=== PATIENT | female | born 1995 | race American Indian/Alaskan Native ===

== ENCOUNTER 2016-06-10 18:49 | Emergency (ER) | payer MEDICAID ==
[2016-06-10 19:04] VITALS: BP 121/59
[2016-06-10 20:33] LABS: Hematocrit 35.9 % (30.3-42.9); Hemoglobin 12.7 gm/dl (10.1-14.3); Mean Corpuscular HGB Conc 35 % (30-34); Mean Corpuscular Hemoglobin 33 pg (28-32); Mean Corpuscular Volume 93 fl (79-97); Platelet Count 224 K/mm3 (140-440); Red Blood Count 3.87 M/mm3 (3.65-5.03); Red Cell Distribution Width 13.3 % (13.2-15.2); White Blood Count 7.5 K/mm3 (4.5-11.0)
[2016-06-10 20:42] LABS: Anion Gap 16 mmol/L; Blood Urea Nitrogen 5 mg/dL (7-17); Calcium 9.5 mg/dL (8.4-10.2); Carbon Dioxide 23 mmol/L (22-30); Glucose 81 mg/dL (65-100); Potassium 3.4 mmol/L (3.6-5.0); Sodium 136 mmol/L (137-145)
--- NOTE | 2016-06-10 21:11 | Ultrasound Report ---
FINAL REPORT EXAM: US OB \T\lt; = 14 WEEKS FETUS HISTORY: with vaginal bleed/pelvic pain , 1st trimester OB TECHNIQUE: Transvesical and endovaginal pelvic sonographic imaging was performed. FINDINGS: The uterus measures 12.7 x 7.9 x 7.7 centimeters. Within the uterus, there is a pole, chorionic sac, and yolk sac identified. heart rate measures 171 beats per minute. By crown rump length of 39.9 millimeters, estimated gestational age is 10 weeks 6 days. Estimated due date by today's ultrasound is 12/31/2016. There is no subchorionic bleed identified. There is no free pelvic fluid. Right ovary measures 3.9 x 3.6 x 2.4 centimeters, sonographically within normal limits. Left ovary measures 4.6 x 3.2 x 1.9 centimeters, sonographically within normal limits. There are small follicles on each ovary. There is no dominant follicle. IMPRESSION: Single live intrauterine gestation at 10 weeks 6 days. Estimated due date by today's ultrasound is 12/31/2016. There is no subchorionic bleed identified. There is trace fluid in the endocervix.
--- NOTE | 2016-06-10 21:13 | Ultrasound Report ---
FINAL REPORT EXAM: US OB TRANSVAGINAL HISTORY: with vaginal bleed/pelvic pain 20-year-old female with vaginal bleeding, by LMP, estimated gestational age 15 weeks 2 days, 1 TECHNIQUE: Transvesical and endovaginal pelvic sonographic imaging was performed. FINDINGS: The uterus measures 12.7 x 7.9 x 7.7 centimeters. Within the uterus, there is a pole, chorionic sac, and yolk sac identified. heart rate measures 171 beats per minute. By crown rump length of 39.9 millimeters, estimated gestational age is 10 weeks 6 days. Estimated due date by today's ultrasound is 12/31/2016. There is no subchorionic bleed identified. There is no free pelvic fluid. Right ovary measures 3.9 x 3.6 x 2.4 centimeters, sonographically within normal limits. Left ovary measures 4.6 x 3.2 x 1.9 centimeters, sonographically within normal limits. There are small follicles on each ovary. There is no dominant follicle. IMPRESSION: Single live intrauterine gestation at 10 weeks 6 days. Estimated due date by today's ultrasound is 12/31/2016. There is no subchorionic bleed identified. There is trace fluid in the endocervix.
[2016-06-10 21:54] LABS: Bacteria,Urine 3+ /HPF (Negative); Bilirubin,Urine NEG (Negative); Blood,Urine NEG (Negative); Ketones,Urine NEG (Negative); Leukocyte Esterase,Urine LG (Negative); Mucus,Urine 2+ /HPF; Nitrite,Urine POS (Negative); Protein,Urine <15 mg/dL mg/dL (Negative); Urobilinogen,Urine < 2.0 mg/dL (<2.0)
--- NOTE | 2016-06-12 01:30 | ED Elopement Review ---
ED Pt Elopement review - Results review Lab results: Laboratory Tests 06/10/16 06/10/16 06/10/16 19:45 19:45 19:45 WBC 7.5 RBC 3.87 Hgb 12.7 Hct 35.9 MCV 93 MCH 33 H MCHC 35 H RDW 13.3 Plt Count 224 Sodium 136 L Potassium 3.4 L Chloride 100.0 Carbon Dioxide 23 Anion Gap 16 BUN 5 L Creatinine 0.5 L Estimated GFR > 60 BUN/Creatinine Ratio 10.00 Glucose 81 Calcium 9.5 HCG, Quant 53250 H Urine Color Urine Turbidity Urine pH Ur Specific [place] Urine Protein Urine Glucose (UA) Urine Ketones Urine Blood Urine Nitrite Urine Bilirubin Urine Urobilinogen Ur Leukocyte Esterase Urine WBC (Auto) Urine RBC (Auto) U Epithel Cells (Auto) Urine Bacteria (Auto) Urine Mucus Blood Type Ord Rhogam Gestat Weeks 06/10/16 06/10/16 19:45 21:12 WBC RBC Hgb Hct MCV MCH MCHC RDW Plt Count Sodium Potassium Chloride Carbon Dioxide Anion Gap BUN Creatinine Estimated GFR BUN/Creatinine Ratio Glucose Calcium HCG, Quant Urine Color [place] Urine Turbidity Cloudy Urine pH 6.0 Ur Specific [place] 1.020 Urine Protein <15 mg/dl Urine Glucose (UA) Neg Urine Ketones Neg Urine Blood Neg Urine Nitrite Pos Urine Bilirubin Neg Urine Urobilinogen < 2.0 Ur Leukocyte Esterase Lg Urine WBC (Auto) 91.0 H Urine RBC (Auto) 3.0 U Epithel Cells (Auto) 8.0 Urine Bacteria (Auto) 3+ Urine Mucus 2+ Blood Type A POSITIVE Ord Rhog Gestat pos - Call Back decision Pt Call Back Decision: Call pt to return to ED [place] (low K, urine wbc (may need abx for uti), return to ed for eval or PMD [place])
== END 2016-06-10 23:00 | disposition left against medical advice (07) ==
LOC: ED 18:49
DX: O26.851 Spotting complicating pregnancy, first trimester (principal); Z3A.14 14 weeks gestation of pregnancy; Z53.21 Procedure and treatment not carried out due to patient leaving prior to being seen by health care provider
CPT/HCPCS: 36415; 76801; 76817; 80048; 81001; 84702; 85027; 86900; 86901

== ENCOUNTER 2016-10-16 12:31 | Outpatient (CLI) | payer MEDICAID ==
[2016-10-16 13:06] VITALS: BP 114/65
[2016-10-16] MEDS ORDERED: LACTATED RINGERS 1,000 ML ONE (13:42)
[2016-10-16] MEDS ORDERED: LACTATED RINGERS 500 ML IV ONE ×3 (13:42→13:58)
[2016-10-16] MEDS ORDERED: BRETHINE SUB-Q SCH (14:00)
[2016-10-16] MEDS ORDERED: BRETHINE ONE (14:01)
[2016-10-16] MEDS ORDERED: PHENERGAN PO ONE (15:42)
[2016-10-16] MEDS ORDERED: MORPHINE IV ONE (15:43)
[2016-10-16 16:15] LABS: Bacteria,Urine 1+ /HPF (Negative); Bilirubin,Urine NEG (Negative); Blood,Urine SM (Negative); Ketones,Urine NEG (Negative); Leukocyte Esterase,Urine LG (Negative); Mucus,Urine FEW /HPF; Nitrite,Urine NEG (Negative); Urobilinogen,Urine < 2.0 mg/dL (<2.0)
[2016-10-16 16:18] LABS: WBC,Urine > 182.0 /HPF (0.0-6.0)
[2016-10-16] MEDS ORDERED: ceFAZolin 2 GM in NACL 0.9% 100 ML IV ONE (16:34)
[2016-10-16] MEDS ORDERED: ANCEF/STERILE WATER 2 GM/20 ML 2 GM/20 ML SYRINGE IV SCH (17:00)
--- NOTE | 2016-10-17 08:13 | Ultrasound Report ---
ULTRASOUND OB LIMITED History: well being Technique: Transabdominal ultrasound with Doppler interrogation. Gestation: Single Position: Breech Heart Rate: 171 BPM
== END 2016-10-16 17:37 | disposition home or self-care (01) ==
LOC: TRG 12:31 → EDBD 12:31 → TRG 12:32
PROVIDERS: ATTEND Obstetrics & Gynecology
DX: O32.1XX1 Maternal care for breech presentation, fetus 1 (principal); O47.03 False labor before 37 completed weeks of gestation, third trimester; Z3A.29 29 weeks gestation of pregnancy
CPT/HCPCS: 59025; 76815; 81001; 96360; 96365; J0690; J2270; J3105; J7120; Q0169

== ENCOUNTER 2016-12-07 16:52 | Outpatient (CLI) | payer OTHER, MEDICAID ==
[2016-12-07 17:44] VITALS: BP 118/68
[2016-12-07] MEDS ORDERED: VISTARIL PO ONE (20:00)
== END 2016-12-07 19:33 | disposition home or self-care (01) ==
LOC: EEVIPCON 16:52 → TRG 16:52 → LD 16:53 → TRG 19:33
PROVIDERS: ATTEND Obstetrics & Gynecology
DX: O47.03 False labor before 37 completed weeks of gestation, third trimester (principal); Z3A.36 36 weeks gestation of pregnancy
CPT/HCPCS: Q0177